=== PATIENT | male | born 1950 | race Caucasian/White ===

== ENCOUNTER 2017-02-07 20:19 | Emergency (ER) | payer MEDICARE, OTHER ==
[~2017-02-07] VITALS: Ht 188 cm; Wt 146.0 kg
[2017-02-07 20:26] VITALS: Ht 188 cm; Wt 146.0 kg
[2017-02-07 21:21] LABS: ADD SCAN DIFF NO
[2017-02-07 21:39] LABS: INR 1.13; PROTIME 14.5 Sec (12.2-14.2); PT RATIO 1.1
[2017-02-07 21:40] LABS: PARTIAL THROMBOPLASTIN TIME 28.1 Sec (25.0-35.0)
[2017-02-07 21:43] LABS: CALCIUM 9.2 mg/dl (8.4-10.2); CREATININE 1.62 mg/dl (0.61-1.24); POTASSIUM 4.3 mmol/L (3.5-5.1)
[2017-02-07 21:55] LABS: TROPONIN-I 0.027 ng/ml (0.00-0.12)
[2017-02-07 21:58] LABS: BASOPHIL # 0.1 10^3/ul (0.0-0.1); EOSINOPHILS # 0.1 10^3/ul (0.0-0.5); EOSINOPHILS % 1.9 % (0.0-7.0); HEMOGLOBIN 10.7 g/dl (14.0-18.0); LYMPHOCYTES % 15.4 % (15.0-51.0); MEAN CORPUSCULAR HEMOGLOBIN 24.4 pg (29.0-33.0); MEAN CORPUSCULAR HGB CONC 30.6 g/dl (32.0-37.0); MEAN CORPUSCULAR VOLUME 79.9 fl (82.0-101.0); MEAN PLATELET VOLUME 9.9 fl (7.4-10.4); MONOCYTE # 0.9 10^3/ul (0.3-0.9); NEUTROPHIL # 4.6 10^3/ul (1.6-7.5); NEUTROPHILS % 68.4 % (39.0-77.0); PLATELET COUNT 267 10^3/UL (140-415); RED BLOOD COUNT 4.38 10^6/ul (4.70-6.10); RED CELL DISTRIBUTION WIDTH 16.6 % (11.5-14.5); WHITE BLOOD COUNT 6.7 10^3/ul (4.8-10.8)
[2017-02-07] MEDS ORDERED: hydrALAzine 20 MG INJ IV ONE (22:30)
--- NOTE | 2017-02-07 23:03 | RADRPT ---
PROCEDURE: Chest. CLINICAL INDICATION: Chest pain. TECHNIQUE: Single frontal view of the chest was obtained. COMPARISON: None. FINDINGS: The cardiac silhouette is enlarged. The aortic arch is unremarkable. There are focal densities with in the right upper lobe measuring up to 1.9 cm. There is no vascular congestion or pleural effusion . There is no pneumothorax. IMPRESSION: Focal densities within the right upper lobe. Further evaluation by CT chest is recommended. Moderate cardiomegaly. .Orville Martin MD, Date Time Electronically viewed and signed by .Orville Martin MD, on 02/07/2017 22:43 .T/
--- NOTE | 2017-02-07 23:08 | ERD ---
ER Documentation Chief Complaint Date/Time DATE: 02/07/17 TIME: 23:03 Chief Complaint SCROTAL SWELLING X 2 WKS, LEFT LEG SWELLING/REDNESS/DRAINAGE X 6 MONTHS HPI This 66-year-old male presents to the emergency room for evaluation of bilateral lower extremity swelling, scrotal swelling, and redness to his bilateral lower extremities. He denies any chest pain or shortness of breath or difficulty breathing at this time. He came to the emergency room for evaluation of symptoms. He denies any aggravating or relieving factors for his symptoms. The patient does state he has a history of hypertension, diabetes, however he stopped taking his Benicar 1 month ago for no reason. He does state he has Benicar at home however he just chose to stop taking ROS All systems reviewed and are negative except as per history of present illness. Medications Home Meds No Active Prescriptions or Reported Meds Allergies Allergies: Coded Allergies: No Known Allergy (Unverified , 02/07/17) PMhx/Soc History of Surgery: Yes (abcess with drainage, wound vac) Anesthesia Reaction: No Hx Neurological Disorder: No Hx Respiratory Disorders: No Hx Cardiac Disorders: Yes (htn, hyperliipids) Hx Psychiatric Problems: No Hx Miscellaneous Medical Probl: Yes (dm) Hx Alcohol Use: Yes (daily) Hx Substance Use: No Hx Tobacco Use: No Smoking Status: Former smoker Physical Exam Vitals Vital Signs Date Time Temp Pulse Resp B/P Pulse Ox O2 Delivery O2 Flow Rate FiO2 02/07/17 20:26 98.9 113 22 275/136 96 Physical Exam INITIAL VITAL SIGNS: Reviewed by me GENERAL: The patient is well developed and appropriate for usual state of health in no apparent distress HEENT: Pupils equal, round, and reactive to light. EOMI. There is no scleral icterus. NECK: C-spine is soft and supple, there is no meningismus. There is no cervical lymphadenopathy. LUNGS: Clear to auscultation bilaterally. There are no rales, wheezes or rhonchi. HEART: Regular rate and rhythm, no murmurs, clicks, rubs or gallops. ABDOMEN: Soft, non-tender, non-distended. There are bowel sounds in all four quadrants. No rebound or guarding. EXTREMITIES: 1+ pitting edema to bilateral lower extremities, scrotal edema, cellulitis noted of the bilateral lower extremities, no skin sloughing NEUROLOGICAL: The patient moves all four extremities with 5/5 strength. Cranial nerves II - XII are intact. Normal gait. Alert and oriented SKIN: There is no apparent rash or petechiae. HEME/LYMPHATIC: There is no evidence of excessive bruising or lymphedema. PSYCHIATRIC: The patient does not appear anxious or depressed. Result Diagram: 02/07/17 2100 02/07/17 2100 Results 24 hrs Laboratory Tests Test 02/07/17 20:32 02/07/17 21:00 Bedside Glucose 172mg/dL White Blood Count 6.710^3/ul Red Blood Count 4.3810^6/ul Hemoglobin 10.7g/dl Hematocrit 35.0% Mean Corpuscular Volume 79.9fl Mean Corpuscular Hemoglobin 24.4pg Mean Corpuscular Hemoglobin Concent 30.6g/dl Red Cell Distribution Width 16.6% Platelet Count 58568^3/UL Mean Platelet Volume 9.9fl Neutrophils % 68.4% Lymphocytes % 15.4% Monocytes % 13.0% Eosinophils % 1.9% Basophils % 1.0% Nucleated Red Blood Cells % 0.0/100WBC Neutrophils # 4.610^3/ul Lymphocytes # 1.010^3/ul Monocytes # 0.910^3/ul Eosinophils # 0.110^3/ul Basophils # 0.110^3/ul Nucleated Red Blood Cells # 0.010^3/ul Prothrombin Time 14.5Sec Prothrombin Time Ratio 1.1 INR International Normalized Ratio 1.13 Activated Partial Thromboplast Time 28.1Sec Sodium Level 141mmol/L Potassium Level 4.3mmol/L Chloride Level 107mmol/L Carbon Dioxide Level 22mmol/L Anion Gap 16 Blood Urea Nitrogen 16mg/dl Creatinine 1.62mg/dl Glucose Level 183mg/dl Calcium Level 9.2mg/dl Troponin I 0.027ng/ml B-Type Natriuretic Peptide 2510PG/ML Current Medications Medications (Trade) Dose Ordered Sig/Jaky Route PRN Reason Start Time Stop Time Status Last Admin Dose Admin Hydralazine HCl (Apresoline) 10 mg ONCE ONCE IV 02/07/17 22:30 02/07/17 22:31 02/07/17 22:10 Procedures/MDM Chest X-ray 1V Interpreted by me: Soft Tissue: No acute abnormalities Bones: No acute abnormalities Mediastinum/Cardiac Silhouette/Lungs: [No acute abnormalities] EKG: Rate/Rhythm: [Normal Sinus Rhythm] QRS, ST, T-waves: [No changes consistent w/ acute ischemia] Impression: [No evidence of ischemia or arrhythmia] This 66-year-old male presents to the emergency room for evaluation of scrotal swelling, bilateral lower extremity swelling and erythema. When I evaluated him he did have 1+ pitting edema he was not hypoxic. Chest x-ray does not reveal any infiltrates or pulmonary edema. Lab values did not reveal any cellulitis. The patient does have minor renal insufficiency. He was hypertensive and was given hydralazine. Hypotension is resolved and I advised the patient he needs to continue his Benicar. The patient will be discharged home at this time with a prescription for Keflex for bilateral lower extremity cellulitis, and Lasix 20 mg a day to take for the next 7 days. I advised him to follow-up with his primary care physician or return to the ER if his symptoms worsen and he verbalized understanding. Departure Diagnosis: Primary Impression: Edema, peripheral Additional Impressions: Bilateral lower leg cellulitis Uncontrolled hypertension Microcytic anemia Renal insufficiency Condition: Stable JJ ESQUIVEL DO Feb 07, 2017 23:08
[2017-02-07] MEDS ORDERED: CEPH-443 PO (23:09)
[2017-02-07] MEDS ORDERED: FURO-110 PO (23:09)
[2017-02-07 23:14] VITALS: BP 187/94; PULSE 97; RESP 24; TEMP 98.9
== END 2017-02-07 23:15 | disposition home or self-care (01) ==
LOC: E/R 20:19
DX: R60.0 Localized edema (principal); L03.116 Cellulitis of left lower limb; L03.115 Cellulitis of right lower limb; I10 Essential (primary) hypertension; D50.9 Iron deficiency anemia, unspecified; N28.9 Disorder of kidney and ureter, unspecified; E11.9 Type 2 diabetes mellitus without complications; Z87.891 Personal history of nicotine dependence
CPT/HCPCS: 36415; 71010; 80048; 82962; 83880; 84484; 85025; 85610; 85730; 93005; 96374; 99285; J0360

== ENCOUNTER 2018-08-04 13:25 | Observation (INO) | END 2018-08-05 18:11 | disposition home or self-care (01) ==